=== PATIENT | female | born 1965 | race Caucasian/White ===

== ENCOUNTER → 2016-10-12 | Outpatient (CLI) | payer BC ==
[~2016-10-12] MED LIST: ADVIN50/60 INH; ALBU1AER9 PO; FERR325T PO
--- NOTE | 2016-10-12 10:32 | DIAGNOSTIC IMAGING REPORT ---
LEFT WRIST MIN 3 VIEWS ROUTINE CLINICAL HISTORY: Left wrist pain following fall. COMPARISON: Left wrist radiographs September 29, 2016. FINDINGS: Alignment of the left wrist is anatomic. There is no acute fracture. IMPRESSION: No acute fracture or dislocation of the left wrist. Electronically signed by: Adebayo Kaplan M.D. 10/12/2016 10:30 AM Dictated Date/Time: 10/12/2016 10:28 AM
== END | disposition home or self-care (01) ==
LOC: C.RDSM 12:50
PROVIDERS: ATTEND Family Medicine
DX: M25.532 Pain in left wrist (principal)

== ENCOUNTER → 2017-09-06 | Outpatient (CLI) | payer BC ==
[~2017-09-06] MED LIST changes: +FERR1TAB62 PO; -FERR325T PO
--- NOTE | 2017-09-09 07:49 | MAMMOGRAPHY REPORT ---
BILATERAL DIGITAL SCREENING MAMMOGRAM TOMOSYNTHESIS WITH CAD: 09/06/2017 CLINICAL HISTORY: Routine screening. Patient has no complaints. TECHNIQUE: Breast tomosynthesis in addition to standard 2D mammography was performed. Current study was also evaluated with a Computer Aided Detection (CAD) system. COMPARISON: Comparison is made to exams dated: 07/04/2016 mammogram, 07/01/2015 mammogram, 06/30/2014 m ammogram, 06/29/2013 mammogram, 06/03/2012 mammogram, and 04/18/2011 mammogram - [facility] nter. BREAST COMPOSITION: There are scattered areas of fibroglandular density in both breasts. FINDINGS: No suspicious masses, calcifications, or areas of architectural distortion are noted in ei ther breast. There has been no significant interval change compared to prior exams. IMPRESSION: ACR BI-RADS CATEGORY 1: NEGATIVE There is no mammographic evidence of malignancy. A 1 year screening mammogram is recommended. The pa tient will receive written notification of the results. Approximately 10% of breast cancers are not detected with mammography. A negative mammographic report should not delay biopsy if a clinically suggestive mass is present. Concepcion Duke M.D. ah/:09/06/2017 16:18:59 Fiscal Specialist: Livia BARRERA(R)(M), [facility] letter sent: Normal 1/2 BI-RADS Code: ACR BI-RADS Category 1: Negative
== END | disposition home or self-care (01) ==
LOC: C.MAMM 15:57
PROVIDERS: ATTEND Obstetrics & Gynecology
DX: Z12.31 Encounter for screening mammogram for malignant neoplasm of breast (principal)

== ENCOUNTER → 2017-10-22 | Outpatient (CLI) | payer BC | END | disposition home or self-care (01) | LOC: C.PAPS 10:09 | PROVIDERS: ATTEND Obstetrics & Gynecology | DX: Z01.419 Encounter for gynecological examination (general) (routine) without abnormal findings (principal) ==

== ENCOUNTER → 2017-11-15 | Outpatient (CLI) | payer OTHER ==
[~2017-11-15] MED LIST changes: +OPTIRAY 320 IV PRN
--- NOTE | 2017-11-15 12:13 | DIAGNOSTIC IMAGING REPORT ---
SOFT TISSUE NECK COMBO CLINICAL HISTORY: K11.20 [id number] FEMALE WITH RIGHT SUBMANDIBULAR pain. Nodule. TECHNIQUE: Pre and postcontrast transaxial acquisition of the soft tissue neck. Three-dimensional multi axial reformatted images are COMPARISON STUDY: None FINDINGS: The unenhanced component of the study shows no abnormal calcifications in the region of the salivary glands or salivary gland drainage tracts. Postcontrast images show all major salivary glands including parotid and submandibular glands to enhance uniformly. Several small nodes in the cervical tracts are identified bilaterally. These do not exceed 6 mm. Superficial to the right submandibular gland at the site of palpable nodularity is a 6 mm benign-appearing node. Similar findings are seen superficial to the left submandibular gland as well as an all levels of the cervical tracts. These potentially are reactive. There is no evidence for significant or bulky adenopathy. Thyroid is symmetric. Glottic and subglottic regions are unremarkable. IMPRESSION: 1. Normal appearance to the salivary glands. 2. Several small lymph nodes superficial to the submandibular glands measuring up to 6 mm. These most likely are reactive. 3. No evidence for abnormal mass or collection. 4. No abnormal soft tissue calcifications. 5. No significant cervical adenopathy is appreciated. The above report was generated using voice recognition software. It may contain grammatical, syntax or spelling errors. Electronically signed by: Herberth Wolff M.D. 11/15/2017 12:12 PM Dictated Date/Time: 11/15/2017 12:03 PM
== END | disposition home or self-care (01) ==
LOC: C.CTS 11:15
DX: K11.20 Sialoadenitis, unspecified (principal); R59.0 Localized enlarged lymph nodes

== ENCOUNTER → 2018-02-10 | Outpatient (CLI) | payer OTHER ==
[~2018-02-10] MED LIST changes: -OPTIRAY 320 IV PRN
[2018-02-10 10:29] LABS: ALBUMIN 3.7 gm/dl (3.4-5.0); ALT/SGPT 21 U/L (12-78); AST/SGOT 17 U/L (15-37); BLOOD UREA NITROGEN 10 mg/dl (7-18); CARBON DIOXIDE 27 mmol/L (21-32); CREATININE 0.78 mg/dl (0.60-1.20); GLUCOSE 88 mg/dl (70-99); POTASSIUM 4.1 mmol/L (3.5-5.1); SODIUM 139 mmol/L (136-145)
[2018-02-10 10:39] LABS: ALKALINE PHOSPHATASE 79 U/L (45-117); TOTAL PROTEIN 7.5 gm/dl (6.4-8.2)
[2018-02-10 10:43] LABS: MEAN CELL VOLUME 76.5 fL (80-100); MEAN PLATELET VOLUME 10.2 fL (7.4-10.4); PLATELET COUNT 296 K/uL (130-400); RED CELL DISTRIBUTION WIDTH CV 15.1 % (11.5-14.5); RED CELL DISTRIBUTION WIDTH SD 42.5 fL (36.4-46.3); WHITE BLOOD COUNT 3.89 K/uL (4.8-10.8)
[2018-02-10 10:47] LABS: BASO % 0.5 %; BASO ABS # 0.02 K/uL (0-0.2); EOS % 3.3 %; EOS ABS # 0.13 K/uL (0-0.5); LYMPH ABS # 1.09 K/uL (1.2-3.4); MONO % 6.9 %; MONO ABS # 0.27 K/uL (0.11-0.59); NEUT % 61.3 %; NEUT ABS # 2.38 K/uL (1.4-6.5)
== END | disposition home or self-care (01) ==
LOC: C.LAB1850 08:55
PROVIDERS: ATTEND Internal Medicine Pulmonary Disease
DX: J45.909 Unspecified asthma, uncomplicated (principal); J30.9 Allergic rhinitis, unspecified; K22.70 Barrett's esophagus without dysplasia

== ENCOUNTER 2018-04-23 12:40 | Inpatient (IN) | payer OTHER ==
[~2018-04-23] VITALS: Ht 154.9 cm; Wt 79.0 kg
[2018-04-23] VITALS (12 sets, daily range): BP systolic 115–139; BP diastolic 69–82; PULSE 82–88; TEMP 36.7–37; O2SAT 95–100; Ht 154.9 cm; Wt 79.0 kg
[~2018-04-23 12:40] MED LIST changes: -CYAN10005 PO; -PRAM1TAB52 PO; -PRLSR20 PO; -VNTHFA/IN INH
--- NOTE | 2018-04-23 13:25 | EMERGENCY ROOM VISIT NOTE ---
History Report prepared by Ras: Gurmeet Taylor Under the Supervision of: Dr. Eric Gutierrez M.D. First contact with patient: 13:03 Chief Complaint: ABNORMAL LABS Stated Complaint: NO OXYGEN IN BLOOD, WEAK, DIZZY History of Present Illness The patient is a 53 year old white female with a past medical history of asthma , anemia who presents to the ED with a cc of constant weakness beginning a week ago. Positive weak, fatigued, taking iron supplements regularly, questionable black stools, SOB with exertion. Negative rectal bleeding, cough, fevers, alcohol use, tobacco use, vomiting blood, prolonged vaginal bleeding, abdominal pain, recent trauma, chest pain, recent surgery, easy bruising, easy bleeding. Pt states she had blood work completed this morning. Review of EMR shows the patient's hemoglobin was 5.8 today. This is a 3 point drop since her last blood work. Source of History: patient Onset: a week ago Quality: other (weakness) Timing: constant Associated Symptoms: + SOB, + fatigue, No fevers, No cough, No chest pain, No vomiting, No abdominal pain Note: Positive: questionable black stools Negative: rectal bleeding Review of Systems See HPI for pertinent positives and negatives. A total of ten systems were reviewed and were otherwise negative. Past Medical & Surgical Medical Problems: (1) Asthma (2) Profound anemia (3) Seasonal allergies (4) Symptomatic anemia Family History Cancer Diabetes mellitus Heart disease Hypertension Kidney disease Kidney stones Social History Smoking Status: Never Smoker Housing Status: lives with family Occupation Status: employed Current/Historical Medications Scheduled Albuterol Hfa (Ventolin Hfa), 2-4 PUFFS INH Q6H Ferrous Sulfate (Ferrous Sulfate), 325 MG PO TID Fluticasone Prop/Salmeterol (Advair Diskus 500/50 60 Dose), 1 PUFF INH BID Omeprazole (Prilosec), 20 MG PO DAILY Allergies Coded Allergies: Chlorpheniramine (Verified Allergy, Severe, HIVES, 04/23/18) PT INDICATED SHE IS ALLERGIC TO ALL ALLERGY MEDICINE Phenylpropanolamine (Verified Allergy, Severe, HIVES, 04/23/18) PT INDICATED SHE IS ALLERGIC TO ALL ALLERGY MEDICINE Penicillins (Verified Allergy, Intermediate, THROAT CLOSES, 04/23/18) Dust (Verified Allergy, Unknown, ASMTHMA, 04/23/18) Latex (Verified Allergy, Unknown, FAINTING, 04/23/18) Physical Exam Vital Signs Date Time Temp Pulse Resp B/P (MAP) Pulse Ox O2 Delivery O2 Flow Rate FiO2 04/23/18 16:57 36.9 84 20 139/82 98 04/23/18 16:39 87 18 134/80 100 04/23/18 16:21 36.8 88 18 132/73 99 04/23/18 16:21 132/73 04/23/18 16:20 138/105 04/23/18 16:17 91/72 04/23/18 16:11 37.0 88 18 123/71 100 04/23/18 16:11 83 26 99 04/23/18 16:01 123/71 04/23/18 15:46 120/73 04/23/18 15:45 36.9 85 18 120/73 98 04/23/18 15:41 83 20 96 04/23/18 15:35 135/74 04/23/18 15:35 36.8 85 24 135/74 98 04/23/18 15:11 84 14 100 04/23/18 15:06 138/74 04/23/18 15:05 36.8 87 24 138/74 98 04/23/18 15:01 142/75 04/23/18 14:50 36.8 87 16 120/69 98 04/23/18 14:49 120/69 04/23/18 14:40 98 Room Air 04/23/18 14:40 99 04/23/18 14:31 128/65 04/23/18 14:17 89 16 128/66 99 Room Air 04/23/18 14:17 128/66 04/23/18 13:40 90 24 99 04/23/18 13:24 90 04/23/18 12:44 36.8 91 20 115/56 99 Room Air Physical Exam GENERAL: Awake, alert, well-appearing, NAD HENT: Normocephalic, atraumatic. EYES: Normal conjunctiva. Sclera non-icteric. PERRL. No anisocoria. NECK: Supple. No nuchal rigidity. FROM. RESPIRATORY: CTAB, no rhonchi, wheezing, crackles CARDIAC: RRR, no MRG RECTAL (performed in the presence of a female nurse): No gross blood. No melanic stool. No fissures. No hemorrhoids. Hemoccult positive. ABDOMEN: Soft, NTND, BS+ MSK: No chest wall TTP, no LE edema NEURO: GCS 15, CN 2-12 intact, moves all 4s on command SKIN: No rash or jaundice noted. Pallor. Medical Decision & Procedures ER Provider Diagnostic Interpretation: X-ray: Per my interpretation, radiologist review. CHEST ONE VIEW PORTABLE CLINICAL HISTORY: Shortness of breath. COMPARISON STUDY: Chest radiograph April 23, 2016. FINDINGS: Patient is rotated. No pneumothorax or pleural effusion is noted. A large hiatal hernia is suspected. Borderline cardiomegaly is noted. There is no evidence for pulmonary edema. Bibasal or prominent markings are unchanged IMPRESSION: 1. No definite acute cardiopulmonary findings. Prominent bibasilar increased markings are similar to previous exam and favor normal vessels or atelectasis. 2. Large hiatal hernia. Electronically signed by: Adebayo Kaplan M.D. 04/23/2018 1:27 PM Dictated Date/Time: 04/23/2018 1:26 PM Laboratory Results Test 04/23/18 13:10 04/23/18 16:12 Prothrombin Time 10.2 SECONDS (9.0-12.0) Prothromb Time International Ratio 1.0 (0.9-1.1) Activated Partial Thromboplast Time 21.5 SECONDS (21.0-31.0) Partial Thromboplastin Ratio 0.8 Laboratory results reviewed by me Medications Administered Medications (Trade) Dose Ordered Sig/Lexus Route Start Time Stop Time Status Last Admin Dose Admin Pantoprazole Sodium 80 mg/ Dextrose 120 ml @ 480 mls/hr NOW STAT IV 04/23/18 14:42 04/23/18 14:56 DC 04/23/18 16:15 480 MLS/HR Pantoprazole Sodium 40 mg/ Dextrose 100 ml @ 20 mls/hr Q5H IV 04/23/18 15:00 04/23/18 19:59 04/23/18 16:35 20 MLS/HR ECG Per My Interpretation Indication: other (Low hemoglobin) Rate (beats per minute): 89 Rhythm: normal sinus Findings: T-wave inversion (Lead III.), other (Normal axis. Normal intervals. No other STS changes or TWI.) ED Course 1320: The patient was evaluated in room A12B. A complete history and physical exam was performed. 1410: Upon reexamination, the patient was resting. I performed a rectal examination. I discussed the test results and treatment plan with her. The patient will be evaluated for further management. 1424: I discussed the patient's case with Dr. Beckwith [facility] Hospitalist. The patient will be evaluated for further management. Medical Decision The patient is a 53 year old white female with a past medical history of asthma , anemia who presents to the ED with a cc of constant weakness beginning a week ago. Nursing notes reviewed. Ancillary studies and prior records reviewed. Differential diagnosis: Etiologies such as diverticulosis, AVM, coagulopathy, colitis, inflammatory bowel disease, malignancy, Jennifer-Curran tear, esophagitis, peptic ulcer disease , variceal bleed, gastritis, epistaxis, fissure, hemorrhoids, as well as others were entertained. Patient was seen and evaluated the bedside. Patient is noted some increasing exertional dyspnea and general fatigue. The patient states that she did have a colonoscopy and endoscopy 2 years ago. The patient did require transfusion at that time. Patient denies any bright red blood or dark tarry stools. The patient has been taking iron supplements. Patient denies any chest pains. Patient does not feel parallel on exam. The patient did have blood work completed as an outpatient was told to present here. The patient does have a noted hemoglobin of 5.8. Patient is menopausal and states that she has not had any recent bowel patient denies any recent trauma. Patient has stable vital signs. Patient did have additional coagulation studies and blood bank along with 2 units of PRBCs ordered. Rectal exam was performed and the patient was Hemoccult positive without any gross blood or tarry dark or tarry stools. PPI bolus and drip were initiated. I did speak with the on-call hospitalist who agreed to further evaluate and treat the patient. Medication Reconcilliation Current Medication List: was personally reviewed by me Blood Pressure Screening Patient's blood pressure: Normal blood pressure Blood pressure disposition: Did not require urgent referral Consults Time Called: 1410 Consulting Physician: Dr. Beckwith [facility] Hospitalist Returned Call: 1424 I discussed the patient's case with Dr. Beckwith [facility] Hospitalist. The patient will be evaluated for further management. Impression Primary Impression: GI bleed Critical Care I have personally spent greater than 45 minutes of critical care time in the direct management of this patient. This includes bedside care, interpretation of diagnostic studies, and testing, discussion with consultants, patient, and family members, and other required patient management activities. This 45 minutes is in excess of all separately billable procedures. Scribe Attestation The scribe's documentation has been prepared under my direction and personally reviewed by me in its entirety. I confirm that the note above accurately reflects all work, treatment, procedures, and medical decision making performed by me. Departure Information Dispostion Being Evaluated By Hospitalist Referrals Paolo Upton M.D. (PCP) Patient Instructions My [facility] Problem Qualifiers Primary Impression: GI bleed GI bleed type/associated pathology: unspecified gastrointestinal hemorrhage type Qualified Codes: K92.2 - Gastrointestinal hemorrhage, unspecified
--- NOTE | 2018-04-23 13:29 | DIAGNOSTIC IMAGING REPORT ---
CHEST ONE VIEW PORTABLE CLINICAL HISTORY: Shortness of breath. COMPARISON STUDY: Chest radiograph April 23, 2016. FINDINGS: Patient is rotated. No pneumothorax or pleural effusion is noted. A large hiatal hernia is suspected. Borderline cardiomegaly is noted. There is no evidence for pulmonary edema. Bibasal or prominent markings are unchanged IMPRESSION: 1. No definite acute cardiopulmonary findings. Prominent bibasilar increased markings are similar to previous exam and favor normal vessels or atelectasis. 2. Large hiatal hernia. Electronically signed by: Adebayo Kaplan M.D. 04/23/2018 1:27 PM Dictated Date/Time: 04/23/2018 1:26 PM
[2018-04-23] MEDS ORDERED: PRLSR20 PO (13:38)
[2018-04-23] MEDS ORDERED: VNTHFA/IN INH (13:38)
[2018-04-23 13:39] LABS: PTT PATIENT 21.5 SECONDS (21.0-31.0)
[2018-04-23] MEDS ORDERED: PANTOprazole INJ 80 MG in DEXTROSE 5% 100ML IV STA (14:42)
[2018-04-23] MEDS ORDERED: ICU PROTOCOL FOR HYPERGLYCEMIA PRN (15:30)
--- NOTE | 2018-04-23 15:35 | History and Physical ---
History & Physical Date & Time of Service: Apr 23, 2018 at 15:30 Chief Complaint: No Oxygen In Blood, Weak, Dizzy Primary Care Physician: Paolo Upton M.D. History of Present Illness Source: patient Paula Arroyo is a 53 yo female who presents with a 1 month history of generalized fatigue. Patient believed this was due to the weather. This past week, this has worsened to the point where patient reports SOB upon exertion, fatigue, and dizziness when changing position. Patient also states having a metallic taste in her mouth for past 2 days. Patient however, denies other symptoms of acid reflux such as burning or chest pain. Patient reports that she is compliant with her medicine, she takes iron supplement and PPI. She reports that she had a similar episode in the past 2 years when she was hospitalized for anemia. It was determined to be iron deficiency but a source was not found. During that time, it was blamed on possible NSAID use. Patient was followed with Dr. Jaffe from [facility] and has had upper and lower Gi endoscopies without showing any signs of bleeding. Patient has not had an repeat episode since and was tolerating her PPI and iron tabs utnil this episode. Patient denies any change in her stool color as she always has dark stools and attributes this to her iron supplement. Past Medical/Surgical History Medical Problems: (1) Anemia (2) Asthma (3) Fall (4) GI bleed (5) Left wrist sprain (6) Profound anemia (7) Seasonal allergies Past Medical History: Includes asthma and allergies. Patient also was hospitalized in 2016 for profound anemia. Has been on iron supplements since. Patient has been monitored by Dr. Jaffe and has had surveillance through upper and lower endoscopies. However the scopes have been negative for bleeding. They have shown a hiatal hernia, and Sandrita'S ESOPHAGUS however. PAST SURGICAL HISTORY: She has never had a colonoscopy. She is actually due for one in June. Family History Cancer Diabetes mellitus Heart disease Hypertension Kidney disease Kidney stones FAMILY HISTORY: No notable colon cancer. Grandparents apparently had diabetes and strokes. Social History Smoking Status: Never Smoker Smokeless Tobacco Use: No Alcohol Use: none Occupational Status: employed Immunizations History of Influenza Vaccine: Yes History of Tetanus Vaccine?: Yes History of Pneumococcal: No History of Hepatitis B Vaccine: Yes Allergies Coded Allergies: Chlorpheniramine (Verified Allergy, Intermediate, HIVES, 04/24/18) PT INDICATED SHE IS ALLERGIC TO ALL ALLERGY MEDICINE Penicillins (Verified Allergy, Intermediate, THROAT CLOSES, 04/23/18) Phenylpropanolamine (Verified Allergy, Intermediate, HIVES, 04/24/18) PT INDICATED SHE IS ALLERGIC TO ALL ALLERGY MEDICINE Dust (Verified Allergy, Mild, ASTHMA, 04/24/18) Latex (Verified Allergy, Unknown, FAINTING, 04/23/18) Home Medications Scheduled Albuterol Hfa (Ventolin Hfa), 2-4 PUFFS INH Q6H Cyanocobalamin (Vitamin B-12), 1,000 MCG PO DAILY Ferrous Sulfate (Ferrous Sulfate), 325 MG PO TID Fluticasone Prop/Salmeterol (Advair Diskus 500/50 60 Dose), 1 PUFF INH BID Omeprazole (Prilosec), 20 MG PO DAILY Pramipexole Dihydrochloride (Mirapex), 1 TAB PO HS Review of Systems Constitutional: No fever, No chills Eyes: No worsening of vision ENT: No hearing loss Respiratory: No cough Cardiovascular: No chest pain Abdomen: + pain Neurologic: No memory loss Psychiatric: No depression symptoms Endocrine: + fatigue, No excessive thirst Hematologic / Lymphatic: No abnormal bleeding/bruising Integumentary: No rash Allergic / Immunologic: No environmental allergies Physical Exam Vital Signs Date Time Temp Pulse Resp B/P (MAP) Pulse Ox O2 Delivery O2 Flow Rate FiO2 04/23/18 14:17 89 16 128/66 99 Room Air 04/23/18 13:24 90 04/23/18 12:44 36.8 91 20 115/56 99 Room Air General Appearance: WD/WN, no apparent distress Head: normocephalic Eyes: normal inspection ENT: normal ENT inspection, hearing grossly normal Neck: supple, no adenopathy Respiratory/Chest: chest non-tender, lungs clear, normal breath sounds Cardiovascular: regular rate, rhythm, no edema Abdomen/GI: normal bowel sounds, non tender, soft Back: normal inspection Extremities/Musculoskelatal: normal inspection Neurologic/Psych: alert, oriented x 3 Skin: normal color Lymphatic: no adenopathy Diagnostics Laboratory Results Results Past 24 Hours Test 04/23/18 13:10 Range/Units Prothrombin Time 10.2 9.0-12.0 SECONDS Prothromb Time International Ratio 1.0 0.9-1.1 Activated Partial Thromboplast Time 21.5 21.0-31.0 SECONDS Partial Thromboplastin Ratio 0.8 Diagnostic Radiology CHEST ONE VIEW PORTABLE CLINICAL HISTORY: Shortness of breath. COMPARISON STUDY: Chest radiograph April 23, 2016. FINDINGS: Patient is rotated. No pneumothorax or pleural effusion is noted. A large hiatal hernia is suspected. Borderline cardiomegaly is noted. There is no evidence for pulmonary edema. Bibasal or prominent markings are unchanged IMPRESSION: 1. No definite acute cardiopulmonary findings. Prominent bibasilar increased markings are similar to previous exam and favor normal vessels or atelectasis. 2. Large hiatal hernia. EKG Normal sinus rhythm Normal ECG When compared with ECG of 23-APR-2016 18:01, No significant change was found Impression Assessment and Plan Symptomatic Anemia in a 53 yo female with h/o remote hospitalization 2 years ago for same reason. Patient has had multiple upper and lower Gi scopes which have been negative. Patient has not had a capsule endoscopy. For past 1 week, patient has been more symptomatic. 1. symptomatic anemia highly suggestive of GI bleed given the presentation of her symptoms. Will admit to Tele Iron studies were done prior to arrival: total iron was low as well as transferrin % saturation was low. Patient is getting transfusion of PRBC. 2 ordered. Hemoglobin is 5.8 from outpatient setting. will order trop x 3. will consult GI likely will need repeat Upper endoscopy in AM Patient will be NPO. will place on IVF LR 150ml/hr Protonix drip started H/O Grant's esophagus will contnue PPI as noted above. H/O Asthma will continue Advair. H/O hiatal hernia will likely require upper endoscopy as noted above. DVT: SCD Resuscitation Status VTE Prophylaxis Will order VTE Prophylaxis: Yes Reason for no VTE drug order: Contraindicated
[2018-04-23] MEDS ORDERED: ALBUTEROL 0.5% NEB SOLN 2.5 MG/0.5 ML VIAL INH PRN (16:30)
[2018-04-23] MEDS: PANTOprazole INJ 40 MG in DEXTROSE 5% 100ML IV SCH ×2 (16:35→21:46)
[2018-04-23 18:26] LABS: ALBUMIN 3.7 gm/dl (3.4-5.0); ALKALINE PHOSPHATASE 76 U/L (45-117); ALT/SGPT 23 U/L (12-78); AST/SGOT 16 U/L (15-37); BLOOD UREA NITROGEN 12 mg/dl (7-18); CALCIUM 8.9 mg/dl (8.5-10.1); CARBON DIOXIDE 25 mmol/L (21-32); CREATININE 0.85 mg/dl (0.60-1.20); GLUCOSE 97 mg/dl (70-99); POTASSIUM 4.1 mmol/L (3.5-5.1); SODIUM 138 mmol/L (136-145); TOTAL PROTEIN 7.2 gm/dl (6.4-8.2)
--- NOTE | 2018-04-23 19:03 | GASTROINTESTINAL CONSULTATION ---
DATE OF CONSULTATION: 04/23/2018 REASON FOR EVALUATION: Anemia. HISTORY OF PRESENT ILLNESS: The patient is a 53-year-old who has had recurrent anemia in the past and undergone upper and lower endoscopies without a specific bleeding site found. For the last month, the patient has been feeling weak and fatigued and for the last week, she has been feeling her heart pounding quite vigorously even at rest. She was found to have a hemoglobin of 5.8 and was referred for admission. She is currently being seen in the Emergency Room where she is receiving her first unit of red blood cells. She denies abdominal pain, nausea, vomiting, change in bowels or visible blood in her stool. She does take iron orally and does make her stools dark. PAST MEDICAL HISTORY: Remarkable for asthma, recurrent anemia. MEDICATIONS: Albuterol, iron, Advair Diskus, and Prilosec. ALLERGIES: CHLORPHENIRAMINE, PENICILLIN, DUST, LATEX. FAMILY HISTORY: Positive for cancer, diabetes, heart disease, hypertension, kidney disease, kidney stones. SOCIAL HISTORY: The patient works outside the home. Does not smoke. REVIEW OF SYSTEMS: Positive for pounding heart and weakness. Remainder is negative. PHYSICAL EXAMINATION: GENERAL: The patient appears somewhat pale, but in no acute distress. VITAL SIGNS: Blood pressure is 128/66, pulse 89, respirations 16, room air saturation is 99%. ABDOMEN: Soft. There are no scars, no masses, tenderness, or hepatosplenomegaly. LUNGS: Clear. HEART: Shows normal S1 and S2. Regular rate and rhythm. NEUROLOGIC: Nonfocal. IMPRESSION: The patient presents with recurrent anemia without any obvious source of blood loss. Her INR is normal at 1. She is not taking any aspirin or nonsteroidals. PLAN: The plan is to transfuse her to hemoglobin of about 8. Start her on Protonix drip. We will schedule her for an EGD tomorrow to rule out an upper source of blood loss. She did have a colonoscopy a couple of years ago, which did not show anything. We probably will proceed with an outpatient video capsule of her small intestine if no other source is found.
[2018-04-23] MEDS: LACTATED RINGER'S 1000ML 1,000 ML IV SCH (19:21)
[2018-04-23 20:13] LABS: HEMATOCRIT 27.2 % (37-47); HEMOGLOBIN 8.2 g/dL (12.0-16.0)
[2018-04-23] MEDS: FLUTICASONE/SALMETEROL (ADVAIR) 500/50 INH 14 PUFF INH SCH (21:04)
[2018-04-24 00:23] LABS: HEMATOCRIT 26.4 % (37-47); HEMOGLOBIN 8.1 g/dL (12.0-16.0)
[2018-04-24] MEDS: LACTATED RINGER'S 1000ML 1,000 ML IV SCH ×3 (01:52→13:54)
[2018-04-24] MEDS: PANTOprazole INJ 40 MG in DEXTROSE 5% 100ML IV SCH ×4 (01:52→16:48)
[2018-04-24 03:56] VITALS: BP 107/60; PULSE 77; TEMP 36.8; O2SAT 94
[2018-04-24 04:10] LABS: BASO % 0.3 %; BASO ABS # 0.01 K/uL (0-0.2); EOS % 1.7 %; EOS ABS # 0.06 K/uL (0-0.5); HEMATOCRIT 25.6 % (37-47); HEMOGLOBIN 7.7 g/dL (12.0-16.0); LYMPH ABS # 0.91 K/uL (1.2-3.4); MEAN CELL VOLUME 75.5 fL (80-100); MEAN CORPUSCULAR HEMOGLOBIN 22.7 pg (25-34); MEAN CORPUSCULAR HGB CONC 30.1 g/dl (32-36); MEAN PLATELET VOLUME 9.9 fL (7.4-10.4); MONO % 9.4 %; MONO ABS # 0.33 K/uL (0.11-0.59); NEUT % 62.6 %; NEUT ABS # 2.19 K/uL (1.4-6.5); PLATELET COUNT 259 K/uL (130-400); RED CELL DISTRIBUTION WIDTH CV 17.3 % (11.5-14.5); RED CELL DISTRIBUTION WIDTH SD 47.9 fL (36.4-46.3)
[2018-04-24 04:32] LABS: ALBUMIN 3.1 gm/dl (3.4-5.0); CREATININE 0.75 mg/dl (0.60-1.20); PHOSPHORUS 3.9 mg/dl (2.5-4.9); TOTAL PROTEIN 6.2 gm/dl (6.4-8.2)
[2018-04-24] MEDS: FLUTICASONE/SALMETEROL (ADVAIR) 500/50 INH 14 PUFF INH SCH ×2 (07:51→20:56)
[2018-04-24 08:05] VITALS: BP 114/73; PULSE 81; TEMP 37.1; O2SAT 94
[2018-04-24 12:05] VITALS: BP 117/71; PULSE 80; TEMP 37; O2SAT 94
[2018-04-24] MEDS ORDERED: COUGH DROP (SUGAR FREE) LOZ 24 LOZ/1 BOX LOZ ONE (13:51)
[2018-04-24 13:55] LABS: HEMATOCRIT 27.9 % (37-47); HEMOGLOBIN 8.5 g/dL (12.0-16.0)
[2018-04-24] MEDS ORDERED: CYANOCOBALAMIN 1000 MCG/ML VIAL IM ONE (15:21)
[2018-04-24] MEDS ORDERED: PROPOFOL IV EMULSION 10 MG/ML 20 ML VIAL ONE (15:24)
[2018-04-24] MEDS ORDERED: LIDOCAINE HCL 2% 2 ML VIAL (20MG/ML) ONE (15:24)
--- NOTE | 2018-04-24 15:36 | Endo History and Physical ---
History & Physical Date of Service: Apr 24, 2018. Chief Complaint: anemia Referring Physician: Dr Upton History of Present Illness For EGD Past Surgical History Hx Cardiac Surgery: No Hx Abdominal Surgery: No Hx Post-Op Nausea and Vomiting: No Hx Cancer Surgery: No Hx Thoracic Surgery: No Hx Orthopedic: No Hx Urinary Tract Surgery: No Social History Smoking Status: Never Smoker Hx Substance Use: No Hx Alcohol Use: No Allergies Coded Allergies: Chlorpheniramine (Verified Allergy, Severe, HIVES, 04/23/18) PT INDICATED SHE IS ALLERGIC TO ALL ALLERGY MEDICINE Phenylpropanolamine (Verified Allergy, Severe, HIVES, 04/23/18) PT INDICATED SHE IS ALLERGIC TO ALL ALLERGY MEDICINE Penicillins (Verified Allergy, Intermediate, THROAT CLOSES, 04/23/18) Dust (Verified Allergy, Unknown, ASMTHMA, 04/23/18) Latex (Verified Allergy, Unknown, FAINTING, 04/23/18) Current Medications Reported Home Medications Medications Dose Route/Sig Max Daily Dose Days Date Category Prilosec (Omeprazole) 20 Mg Capcr 20 Mg PO DAILY 04/23/18 Reported Ventolin Hfa (Albuterol) 200 Puffs/98153 Mcg Aers 2-4 Puffs INH Q6H 04/23/18 Reported Ferrous Sulfate 325 Mg Tab 325 Mg PO TID 04/25/16 Rx Advair Diskus 500/50 60 Dose (Fluticasone Prop/Salmeterol) 1 Ea Aerp 1 Puff INH BID 04/23/16 Reported Vital Signs Weight (Kilograms): 80.700 Height (Feet): 5 Height (Inches): 1 Date Time Temp Pulse Resp B/P (MAP) Pulse Ox O2 Delivery O2 Flow Rate FiO2 04/24/18 12:05 37.0 80 16 117/71 (86) 94 Room Air 04/24/18 08:05 37.1 81 16 114/73 (87) 94 Room Air 04/24/18 08:00 Room Air 04/24/18 03:56 36.8 77 24 107/60 (76) 94 Room Air 04/23/18 23:38 36.7 82 24 115/73 (87) 95 Room Air 04/23/18 20:00 Room Air 04/23/18 18:00 Room Air 04/23/18 18:00 36.8 84 18 136/72 96 04/23/18 17:37 36.9 86 20 151/87 96 04/23/18 17:32 151/87 04/23/18 17:26 86 20 96 04/23/18 16:57 36.9 84 20 139/82 98 04/23/18 16:57 139/82 04/23/18 16:56 84 26 98 04/23/18 16:46 141/88 04/23/18 16:39 87 18 134/80 100 04/23/18 16:31 134/80 04/23/18 16:26 89 20 100 04/23/18 16:21 36.8 88 18 132/73 99 04/23/18 16:21 132/73 04/23/18 16:20 138/105 04/23/18 16:17 91/72 04/23/18 16:11 37.0 88 18 123/71 100 04/23/18 16:11 83 26 99 04/23/18 16:01 123/71 04/23/18 15:46 120/73 04/23/18 15:45 36.9 85 18 120/73 98 04/23/18 15:41 83 20 96 04/23/18 15:35 135/74 04/23/18 15:35 36.8 85 24 135/74 98 Physical Exam General Appearance: WD/WN Respiratory/Chest: Respiratory effort: no dyspnea Cardiovascular: Heart Auscultation: RRR Abdomen: Inspection & Palpation: soft Assessment and Plan anemia for EGD
--- NOTE | 2018-04-24 15:55 | Discharge Instructions ---
Endoscopy Patient Instructions Date / Procedure(s) Performed Apr 24, 2018. EGD Allergy Information Coded Allergies: Chlorpheniramine (Verified Allergy, Severe, HIVES, 04/23/18) PT INDICATED SHE IS ALLERGIC TO ALL ALLERGY MEDICINE Phenylpropanolamine (Verified Allergy, Severe, HIVES, 04/23/18) PT INDICATED SHE IS ALLERGIC TO ALL ALLERGY MEDICINE Penicillins (Verified Allergy, Intermediate, THROAT CLOSES, 04/23/18) Dust (Verified Allergy, Unknown, ASMTHMA, 04/23/18) Latex (Verified Allergy, Unknown, FAINTING, 04/23/18) Discharge Date / Findings Apr 24, 2018. Grant's, inlet patch Medication Instructions Restart Stopped Medication(s): resume meds Current Inpatient Medications Medications (Trade) Dose Ordered Sig/Lexus Route Start Time Stop Time Status Last Admin Dose Admin Pantoprazole Sodium 40 mg/ Dextrose 100 ml @ 20 mls/hr Q5H IV 04/23/18 15:00 05/23/18 14:59 04/24/18 11:30 20 MLS/HR Miscellaneous Information ([facility] Protocol For Hyperglycemia) 1 ea PRN PRN N/A 04/23/18 15:30 04/25/18 15:29 Salmeterol Xinafoate/ Fluticasone (Advair Diskus 500/50 Inh) 1 puff BID INH 04/23/18 21:00 05/23/18 20:59 04/24/18 07:51 1 PUFF Albuterol Sulfate (Ventolin 0.5% 2.5MG/0.5ML Neb) 2.5 mg Q6R PRN INH 04/23/18 16:30 05/23/18 16:29 Lactated Ringer's 1,000 ml @ 150 mls/hr Q6H40M IV 04/23/18 18:45 05/23/18 18:44 04/24/18 13:54 150 MLS/HR Provider Instructions Activity Restrictions - No exercising or heavy lifting for 24 hours. - Do not drink alcohol the day of the procedure. - Do not drive a car or operate machinery until the day after the procedure. - Do not make any important decisions or sign important papers in 24 hours after the procedure. Following Day: - Return to full activity which may include returning to work/school. Diet Start your diet with liquids and light foods (jello, soup, juice, toast). Then eat your usual diet if not nauseated. Treatment For Common After Affects For mild abdominal pain, bloating, or excessive gas: - Rest - Eat lightly - Lie on right side Follow-Up Information Follow-up with as scheduled Anesthesia Information What You Should Know You have had a procedure that required some medicine to reduce anxiety and discomfort. This treatment is called moderate sedation. After receiving the treatment, you may be sleepy, but you will be able to breathe on your own. The effects of the treatment may last for several hours. Follow these instructions along with Activity/Diet recommendations noted above: * Do NOT do anything where dizziness or clumsiness would be dangerous. * Rest quietly at home today, then you can be up and about tomorrow. * Have a responsible person stay with you the rest of today. * You may have had an I.V. today. If so, you may take the dressing off later today. Recommendations Call your doctor if: * Trouble breathing * Continuous vomiting for more than 24 hours * Temperature above 101 degrees * Severe abdominal pain or bloating * Pain not relieved by pain medicine ordered * There is increased drainage or redness from any incision * A large amount of rectal bleeding greater than 2-3 tablespoons. (If you had a polyp/s removed or have hemorrhoids, a small amount of blood - from the rectum is to be expected.) * You have any unanswered questions or concerns. IN THE EVENT OF A SERIOUS EMERGENCY, GO TO THE NEAREST EMERGENCY ROOM Your discharge instructions were prepared by provider Jonathan Jaffe. Patient Instructions Signature Page Paula Arroyo Patient (or Guardian) Signature/Date: I have read and understand the instructions given to me by my caregivers. Caregiver/RN/Doctor Signature/Date: The above-named patient and/or guardian has received patient instructions on this date. + Original Patient Signature Page (only) stays with chart. Please make copy for patient.
--- NOTE | 2018-04-24 16:14 | GI REPORT ---
Patient Name: Paula Arroyo Procedure Date: 04/24/2018 3:38 PM Date of : 1965 Admit Type: Inpatient Age: 53 Gender: Female Attending MD: Jonathan Jaffe MD Procedure: Upper GI endoscopy Providers: Jonathan Jaffe MD Referring MD: John Guerrero Indications: Iron deficiency anemia Medicines: Propofol total dose 200 mg IV, Lidocaine 40 mg IV Complications: No immediate complications. Estimated Blood Loss: Estimated blood loss: none. Procedure: Pre-Anesthesia Assessment: - Prior to the procedure, a History and Physical was performed, and patient medications, allergies and sensitivities were reviewed. The patient's tolerance of previous anesthesia was reviewed. - The risks and benefits of the procedure and the sedation options and risks were discussed with the patient. All questions were answered and informed consent was obtained. After obtaining informed consent, the endoscope was passed under direct vision. Throughout the procedure, the patient's blood pressure, pulse, and oxygen saturations were monitored continuously. The Scope was introduced through the mouth, and advanced to the third part of duodenum. The upper GI endoscopy was accomplished without difficulty. The patient tolerated the procedure well. Findings: The Z-line was regular and was found 21 cm from the incisors. 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 Esophagus ends at 31 cm. The entire examined stomach was normal. The third portion of the duodenum and examined duodenum were normal. A medium-sized hiatal hernia was present. Impression: - Z-line regular, 21 cm from the incisors. 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 - Normal stomach. - Normal third portion of the duodenum and examined duodenum. - No specimens collected. Recommendation: - Return patient to hospital [facility] for ongoing care. - Perform a colonoscopy tomorrow. Jonathan Jaffe M.D. Jonathan Jaffe MD 04/24/2018 4:14:13 PM This report has been signed electronically. Note Initiated On: 04/24/2018 3:38 PM Number of Addenda: 0 I attest to the content of the Intraoperative Record and orders documented therein, exceptions below {[id number]}
--- NOTE | 2018-04-24 16:26 | PROGRESS NOTE ---
DATE: 04/24/2018 SUBJECTIVE: The patient feels better today after receiving 2 units of red cells. Her hemoglobin today is 8.5. She underwent an EGD today which showed a gastric inlet patch and a 10 cm Grant's segment with no evidence of abnormalities. The stomach and duodenum up until the third portion were all normal with no source of blood loss identified. IMPRESSION: The patient has severe iron deficiency anemia with no upper gastrointestinal source for bleeding. She has been postmenopausal for a year. She has seen no hematuria and no visible blood in her stool, although she is on iron orally. PLAN: Plan is to proceed with a colonoscopy tomorrow and if that does not show any bleeding site then will need to schedule an outpatient video capsule procedure. Colonoscopy will be performed tomorrow by Dr. Stokes.
[2018-04-24 16:46] VITALS: BP 136/84; PULSE 84; O2SAT 100
[2018-04-24] MEDS: LAVAGE SOLUTION 4000ML PO SCH (16:48)
--- NOTE | 2018-04-24 17:03 | Anesthesiology Progress Note ---
Anesthesia Post Op Note Date & Time Apr 24, 2018 at 17:02 Vital Signs Pain Intensity: 0.0 Vital Signs Past 12 Hours Date Time Temp Pulse Resp B/P (MAP) Pulse Ox O2 Delivery O2 Flow Rate FiO2 04/24/18 16:46 84 20 136/84 (101) 100 Room Air 04/24/18 16:28 79 18 128/73 (91) 100 Room Air 04/24/18 16:13 83 18 114/70 (85) 96 Room Air 04/24/18 15:58 80 16 98/52 (67) 95 Room Air 04/24/18 15:26 37.4 78 20 107/66 (80) 94 Room Air 04/24/18 12:05 37.0 80 16 117/71 (86) 94 Room Air 04/24/18 08:05 37.1 81 16 114/73 (87) 94 Room Air 04/24/18 08:00 Room Air Notes Mental Status: alert / awake / arousable, participated in evaluation Nausea / Vomiting: adequately controlled Pain: adequately controlled Airway Patency, RR, SpO2: stable & adequate BP & HR: stable & adequate Hydration State: stable & adequate Anesthetic Complications: no major complications apparent
--- NOTE | 2018-04-24 19:06 | Progress Note ---
Subjective Date of Service: Apr 24, 2018. Subjective Pt evaluation today including: conversation w/ patient, physical exam, chart review, lab review, review of studies (EGD), review of inpatient medication list Pain: none - no abdominal pain PO Intake: npo for EGD Voiding: no voiding problems tele stable overnight patient denies overt GI bleeding, melena, etc no family h/o celiac disease no intolerance to any foods no chronic digestive symptoms underwent menopause 1-2 years ago Problem List Medical Problems: (1) Fall Status: Acute (2) GI bleed Status: Acute (3) GI bleed Status: Acute (4) Left wrist sprain Status: Acute Review of Systems Respiratory: + cough, No shortness of breath, No dyspnea on exertion Cardiac: No chest pain Abdomen: No pain, No nausea, No vomiting Female : No abnormal vaginal bleeding Objective Vital Signs Date Time Temp Pulse Resp B/P (MAP) Pulse Ox O2 Delivery O2 Flow Rate FiO2 04/24/18 16:46 84 20 136/84 (101) 100 Room Air 04/24/18 16:28 79 18 128/73 (91) 100 Room Air 04/24/18 16:13 83 18 114/70 (85) 96 Room Air 04/24/18 15:58 80 16 98/52 (67) 95 Room Air 04/24/18 15:26 37.4 78 20 107/66 (80) 94 Room Air 04/24/18 12:05 37.0 80 16 117/71 (86) 94 Room Air 04/24/18 08:05 37.1 81 16 114/73 (87) 94 Room Air 04/24/18 08:00 Room Air 04/24/18 03:56 36.8 77 24 107/60 (76) 94 Room Air 04/23/18 23:38 36.7 82 24 115/73 (87) 95 Room Air 04/23/18 20:00 Room Air Physical Exam General Appearance: no apparent distress, + obese ENT: pharynx normal Neck: no JVD Respiratory/Chest: lungs clear, no respiratory distress, no accessory muscle use Cardiovascular: regular rate, rhythm, no gallop, no murmur Abdomen: normal bowel sounds, non tender, soft, no organomegaly Extremities: no pedal edema Neurologic/Psychiatric: alert, oriented x 3 Skin: + pallor Laboratory Results Last 24 Hours Test 04/23/18 19:58 7/26/18 00:06 04/24/18 03:59 04/24/18 07:53 Hemoglobin 8.2 g/dL 8.1 g/dL 7.7 g/dL Hematocrit 27.2 % 26.4 % 25.6 % Troponin I < 0.015 ng/ml < 0.015 ng/ml White Blood Count 3.50 K/uL Red Blood Count 3.39 M/uL Mean Corpuscular Volume 75.5 fL Mean Corpuscular Hemoglobin 22.7 pg Mean Corpuscular Hemoglobin Concent 30.1 g/dl Platelet Count 259 K/uL Mean Platelet Volume 9.9 fL Neutrophils (%) (Auto) 62.6 % Lymphocytes (%) (Auto) 26.0 % Monocytes (%) (Auto) 9.4 % Eosinophils (%) (Auto) 1.7 % Basophils (%) (Auto) 0.3 % Neutrophils # (Auto) 2.19 K/uL Lymphocytes # (Auto) 0.91 K/uL Monocytes # (Auto) 0.33 K/uL Eosinophils # (Auto) 0.06 K/uL Basophils # (Auto) 0.01 K/uL RDW Standard Deviation 47.9 fL RDW Coefficient of Variation 17.3 % Immature Granulocyte % (Auto) 0.0 % Immature Granulocyte # (Auto) 0.00 K/uL Polychromasia 1+ Hypochromasia PRESENT Ovalocytes 1+ Sodium Level 141 mmol/L Potassium Level 4.0 mmol/L Chloride Level 110 mmol/L Carbon Dioxide Level 23 mmol/L Anion Gap 8.0 mmol/L Blood Urea Nitrogen 10 mg/dl Creatinine 0.75 mg/dl Est Creatinine Clear Calc Drug Dose 82.9 ml/min Estimated GFR () 104.7 Estimated GFR (Non- 90.4 BUN/Creatinine Ratio 13.5 Random Glucose 106 mg/dl Calcium Level 8.0 mg/dl Phosphorus Level 3.9 mg/dl Magnesium Level 2.4 mg/dl Total Bilirubin 0.9 mg/dl Direct Bilirubin 0.2 mg/dl Aspartate Amino Transf (AST/SGOT) 14 U/L Alanine Aminotransferase (ALT/SGPT) 21 U/L Alkaline Phosphatase 71 U/L Total Protein 6.2 gm/dl Albumin 3.1 gm/dl Test 04/24/18 13:46 Hemoglobin 8.5 g/dL Hematocrit 27.9 % Ferritin 1.5 ng/ml Vitamin B12 Level 236 pg/mL Folate 21.26 ng/mL Assessment and Plan 53yo female with: 1. acute/chronic microcytic anemia - EGD today w/o source of bleeding. [facility] to proceed with colonoscopy tomorrow. If negative then outpatient capsule endoscopy. Microcytic anemia is secondary to severe iron deficiency anemia. Ferritin level was 1.5 today! She also has concomitant B12 deficiency. d/c PPI drip. can change to once daily PO protonix. If colonoscopy and capsule endoscopy are negative consider celiac testing. s/p 2 units PRBCs with stable H/H today. Repeat CBC am. 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 3. b12 deficiency - given the severity of her anemia I cannot exclude that the b12 deficiency is playing some role. thus, will order b12 and give parenterally while hospitalized. convert to PO at discharge. 4. asthma - continue outpatient inhalers. 5. hiatal hernia - moderate - PPI. 6. FEN - lower fluid rate to 75cc/hr. BMP in am. 7. DVT proph - SCDs; chemical means contraindicated. 8. fatigue, dyspnea, etc - 2nd to severe anemia. Improved. Continued [facility] stay due to: inadequate po fluid intake, multiple IV medications needed, other (colonoscopy ) Discharge planning: home
[2018-04-24 19:26] VITALS: BP 136/83; PULSE 78; TEMP 36.5; O2SAT 98
[2018-04-24 23:35] VITALS: BP 113/66; PULSE 76; TEMP 36.9; O2SAT 93
[2018-04-25] VITALS (8 sets, daily range): BP systolic 114–149; BP diastolic 53–81; PULSE 76–114; TEMP 36.5–36.8; O2SAT 89–100
[2018-04-25] MEDS: LAVAGE SOLUTION 4000ML PO SCH (05:30)
[2018-04-25 07:31] LABS: BASO % 0.3 %; BASO ABS # 0.01 K/uL (0-0.2); EOS % 2.5 %; EOS ABS # 0.09 K/uL (0-0.5); HEMATOCRIT 26.4 % (37-47); LYMPH % 28.8 %; LYMPH ABS # 1.05 K/uL (1.2-3.4); MEAN CELL VOLUME 76.5 fL (80-100); MEAN CORPUSCULAR HEMOGLOBIN 23.2 pg (25-34); MEAN CORPUSCULAR HGB CONC 30.3 g/dl (32-36); MONO % 7.4 %; MONO ABS # 0.27 K/uL (0.11-0.59); NEUT ABS # 2.23 K/uL (1.4-6.5); PLATELET COUNT 265 K/uL (130-400); RED CELL DISTRIBUTION WIDTH CV 18.1 % (11.5-14.5); RED CELL DISTRIBUTION WIDTH SD 51.2 fL (36.4-46.3); WHITE BLOOD COUNT 3.65 K/uL (4.8-10.8)
[2018-04-25] MEDS: FLUTICASONE/SALMETEROL (ADVAIR) 500/50 INH 14 PUFF INH SCH (07:54)
[2018-04-25] MEDS: LACTATED RINGER'S 1000ML 1,000 ML IV SCH (07:59)
[2018-04-25 08:00] LABS: CALCIUM 8.6 mg/dl (8.5-10.1); CREATININE 0.72 mg/dl (0.60-1.20); POTASSIUM 3.7 mmol/L (3.5-5.1)
[2018-04-25] MEDS ORDERED: CYANOCOBALAMIN 1000 MCG/ML VIAL IM SCH (09:00)
[2018-04-25] MEDS ORDERED: PANTOprazole SOD 40 MG TAB PO SCH (09:00)
--- NOTE | 2018-04-25 12:42 | History & Physical Bridge Note ---
H&P Re-Evaluation Bridge Note: I have examined the patient, reviewed the History & Physical and in the interval since the performance of the History & Physical I have noted the following changes of clinical significance: No changes noted FARIHA; transfused for colonoscopy with possible bx/cautery consent obtained
[2018-04-25] MEDS ORDERED: LIDOCAINE HCL 2% 2 ML VIAL (20MG/ML) ONE (13:17)
[2018-04-25] MEDS ORDERED: PROPOFOL IV EMULSION 10 MG/ML 20 ML VIAL ONE ×2 (13:17→13:31)
--- NOTE | 2018-04-25 14:49 | Anesthesiology Progress Note ---
Anesthesia Post Op Note Date & Time Apr 25, 2018 at 14:49 Vital Signs Pain Intensity: 0.0 Vital Signs Past 12 Hours Date Time Temp Pulse Resp B/P (MAP) Pulse Ox O2 Delivery O2 Flow Rate FiO2 04/25/18 14:10 36 84 20 124/68 (86) 93 Room Air 04/25/18 13:55 84 20 118/62 (80) 93 Room Air 04/25/18 13:40 36 82 16 96/49 (65) 93 Room Air 04/25/18 12:48 36.7 85 20 113/68 (83) 96 Room Air 04/25/18 12:05 36.5 85 20 149/77 (101) 95 Room Air 04/25/18 11:32 98 Nasal Cannula 3.0 04/25/18 11:31 114 24 123/53 (76) 89 Room Air 04/25/18 08:00 Room Air 04/25/18 08:00 36.8 78 20 130/81 (97) 100 Room Air 04/25/18 04:36 36.7 76 17 114/68 (83) 91 Room Air Notes Mental Status: alert / awake / arousable, participated in evaluation Pt Amnestic to Procedure: Yes Nausea / Vomiting: adequately controlled Pain: adequately controlled Airway Patency, RR, SpO2: stable & adequate BP & HR: stable & adequate Hydration State: stable & adequate Anesthetic Complications: no major complications apparent
--- NOTE | 2018-04-25 15:23 | GI REPORT ---
Patient Name: Paula Arroyo Procedure Date: 04/25/2018 12:55 PM Date of : 1965 Admit Type: Inpatient Age: 53 Gender: Female Attending MD: Gurmeet Stokes MD Procedure: Colonoscopy Providers: Gurmeet Stokes MD Referring MD: John Guerrero Indications: Iron deficiency anemia Medicines: Propofol per Anesthesia Complications: No immediate complications. Estimated blood loss: None. Estimated Blood Loss: Estimated blood loss: none. Procedure: Pre-Anesthesia Assessment: - Prior to the procedure, a History and Physical was performed, and patient medications and allergies were reviewed. The patient's tolerance of previous anesthesia was also reviewed. The risks and benefits of the procedure and the sedation options and risks were discussed with the patient. All questions were answered, and informed consent was obtained. Prior Anticoagulants: The patient has taken no previous anticoagulant or antiplatelet agents. ASA Grade Assessment: II - A patient with mild systemic disease. After reviewing the risks and benefits, the patient was deemed in satisfactory condition to undergo the procedure. After I obtained informed consent, the scope was passed under direct vision. Throughout the procedure, the patient's blood pressure, pulse, and oxygen saturations were monitored continuously. The scope was introduced through the anus and advanced to the terminal ileum, with identification of the appendiceal orifice and IC valve. The colonoscopy was performed without difficulty. The patient tolerated the procedure well. The quality of the bowel preparation was good. Findings: The perianal and digital rectal examinations were normal. Pertinent negatives include normal sphincter tone, no palpable rectal lesions and no anal lesion or abnormality was detected. The terminal ileum appeared normal. The colon (entire examined portion) appeared normal. The retroflexed view of the distal rectum and anal verge was normal and showed no anal or rectal abnormalities. Impression: - The examined portion of the ileum was normal. - The entire examined colon is normal. - The distal rectum and anal verge are normal on retroflexion view. - No specimens collected. Recommendation: - Return patient to hospital [facility] for ongoing care. - To visualize the small bowel, perform video capsule endoscopy at appointment to be scheduled. - Celiac markers if not recently performed. MD Gurmeet Caban MD 04/25/2018 3:22:56 PM This report has been signed electronically. Note Initiated On: 04/25/2018 12:55 PM Number of Addenda: 0 I attest to the content of the Intraoperative Record and orders documented therein, exceptions below {[id number]}
[2018-04-25 15:46] LABS: HEMATOCRIT 26.1 % (37-47); HEMOGLOBIN 7.9 g/dL (12.0-16.0)
--- NOTE | 2018-04-25 17:34 | GASTROENTEROLOGY PROGRESS NOTE ---
DATE: 04/25/2018 The patient underwent colonoscopy today without source of anemia. Scope advanced to the terminal ileum. The patient's hemoglobin today was 7.9 and generally stable. She did receive a total of 2 units of packed cells on 04/23/2018. EGD yesterday by Dr. Jaffe shows ectopic gastric mucosa consistent with an inlet patch. Duodenal biopsies were not obtained. IMPRESSION AND PLAN: No obvious colonic source on today's study for bleeding. Will recommend outpatient video capsule endoscopy. If not recently performed, would check for celiac markers. Other sources may be gynecologic in origin if uterus is intact and still menstruating. We will make arrangements for a capsule endoscopy as an outpatient. Dr. Francis is covering this weekend.
[2018-04-25] MEDS ORDERED: CYAN10005 PO (17:52)
[2018-04-25] MEDS ORDERED: PRAM1TAB52 PO (17:55)
[2018-04-25] MEDS ORDERED: IRON SUCROSE INJ 100 MG in SODIUM CHLORIDE 0.9% 100ML 100 ML IV SCH (18:00)
--- NOTE | 2018-04-25 18:00 | Discharge Instructions ---
Discharge Instructions Date of Service Apr 25, 2018. Admission Reason for Admission: Symptomatic Anemia Discharge Discharge Diagnosis / Problem: Severe iron deficiency anemia with need for 2 units of blood Discharge Goals Goal(s): Learn about illness, Diagnostic testing, Therapeutic intervention Activity Recommendations Activity Limitations: as noted below For the next few days I would avoid strenuous activities (going to the gym, heavy outdoor tasks, etc). Gradually build up your activity level in the next week. . Instructions / Follow-Up Instructions / Follow-Up During your stay we found that you are severely iron deficiency and also B12 deficient. You received 2 units of blood and also IV iron. Please continue your iron three times a day as previous. Please also purchase [id number] vitamin B12 and take 1000mcg (1mg) daily. You will also receive shots in the doctor's office. We did not find a reason for your low iron. You will have an outpatient "capsule endoscopy" with Dr. Jaffe. You will also have testing for celiac disease (gluten intolerance). You can consider taking mirapex at bedtime for your night-time cramps/leg pains. This should help those symptoms. Do not drink alcohol with the mirapex. The mirapex may make you tired/sleepy. Follow-up with Dr. Upton's Office next week as well as with Dr. Jaffe. See separate section for appointment details. Return to [facility] if - * you are severely dizzy or lightheaded * you see black, tarry stools or bright red blood in your stools * any other concerns Current Hospital Diet Patient's current hospital diet: Regular Diet Discharge Diet Recommended Diet: Regular Diet Procedures Procedures Performed: Colonoscopy Upper endoscopy - Grant's seen, hiatal hernia seen Pending Studies Studies pending at discharge: no Medical Emergencies . Who to Call and When: Medical Emergencies: If at any time you feel your situation is an emergency, please call 911 immediately. . Non-Emergent Contact Non-Emergency issues call your: Primary Care Provider Call Non-Emergent contact if: temperature is above 100.5, you have any medication questions . . "Provider Documentation" section prepared by John Guerrero. .
--- NOTE | 2018-04-27 07:05 | Discharge Summary ---
Discharge Summary Date of Service Apr 27, 2018. Discharge Summary Admission Date: Apr 23, 2018 at 16:57 Discharge Date: Apr 25, 2018 Discharge Disposition: Home Principal Diagnosis: acute/chronic iron deficiency anemia Problems/Secondary Diagnoses: 1. severe symptomatic anemia s/p 2 units PRBCs 2. restless legs syndrome 2nd to severe iron deficiency 3. vitamin B12 deficiency 4. asthma 5. allergic rhinitis 6. Grant's esophagus 7. hiatal hernia 8. GERD Immunizations: Have You Had Influenza Vaccine: Yes History of Tetanus Vaccine?: Yes History of Pneumococcal: No History of Hepatitis B Vaccine: Yes Procedures: 1. PRBCs x 2 units 2. EGD - Grant's esophagus, hiatal hernia - no source of bleeding; Jonathan Jaffe MD 3. colonoscopy - normal; no source of bleeding; Jonathan Jaffe MD Consultations: gastroenterology - Jonathan Jaffe MD Medication Reconciliation New Medications: Cyanocobalamin (Vitamin B-12) 1,000 Mcg Tab 1000 MCG PO DAILY for 30 Days, #30 TAB 11 Refills Pramipexole Dihydrochloride (Mirapex) 0.25 Mg Tab 1 TAB PO HS for 30 Days, #30 TAB 2 Refills Continued Medications: Albuterol Hfa (Ventolin Hfa) 200 Puffs/03510 Mcg Aers 2-4 PUFFS INH Q6H, #1 INHALER Ferrous Sulfate (Ferrous Sulfate) 325 Mg Tab 325 MG PO TID, #90 TABS Fluticasone Prop/Salmeterol (Advair Diskus 500/50 60 Dose) 1 Ea Aerp 1 PUFF INH BID, INHALER Omeprazole (Prilosec) 20 Mg Capcr 20 MG PO DAILY, CAP Discharge Exam Physical Exam: General Appearance: no apparent distress ENT: pharynx normal Neck: no JVD Respiratory/Chest: lungs clear, no respiratory distress, no accessory muscle use Cardiovascular: regular rate, rhythm, no gallop, no murmur, normal peripheral pulses Abdomen / GI: normal bowel sounds, non tender, soft, no organomegaly Extremities: no pedal edema Neurologic/Psychiatric: alert, oriented x 3 Skin: + pallor Hospital Course HISTORY OF PRESENT ILLNESS: Paula Arroyo is a 53 yo female who presents with a 1 month history of generalized fatigue. Patient believed this was due to the weather. This past week, this has worsened to the point where patient reports SOB upon exertion, fatigue, and dizziness when changing position. Patient also states having a metallic taste in her mouth for past 2 days. Patient however, denies other symptoms of acid reflux such as burning or chest pain. Patient reports that she is compliant with her medicine, she takes iron supplement and PPI. She reports that she had a similar episode in the past 2 years when she was hospitalized for anemia. It was determined to be iron deficiency but a source was not found. During that time, it was blamed on possible NSAID use. Patient was followed with Dr. Jaffe from [facility] and has had upper and lower endoscopies without showing any signs of bleeding. Patient has not had an repeat episode since and was tolerating her PPI and iron tabs. Patient denies any change in her stool color as she always has dark stools and attributes this to her iron supplement. HOSPITAL COURSE: Hemoglobin just prior to admission was 5.8. After admission to the telemetry unit she was placed on PPI drip and given 2 units of PRBCs without complication. Ferritin level was 1.5, and surprisingly her vitamin B12 level was also low at about 220. Folate was normal. Dr. Jonathan Jaffe with [facility] was consulted who performed EGD and colonoscopy during her stay. Both endoscopies failed to show a source of active bleeding. EGD showed hiatal hernia and Grant's esophagus, both of which had been seen in the past. Following her PRBCs her hemoglobin stayed at about 8 for the remainder of her stay. In light of her very severe iron deficiency and the fact she had been taking oral iron for 2+ years she was given IV iron (venofer) and tolerated this without difficulty. Additional treatments could be considered in the outpatient setting. She was also given parenteral vitamin B12 in the event she has a small bowel absorption issue leading to her iron and B12 deficiencies. At discharge the following were recommended - 1. outpatient capsule endoscopy with Dr. Jaffe 2. consideration of celiac disease testing 3. ongoing B12 injections and/or oral replacement 4. ongoing iron supplementation - strongly consider IV replacement given her lack of response to oral replacement in the past 5. mirapex at bedtime for significant restless legs syndrome, likely due to the iron deficiency Total Time Spent: Greater than 30 minutes This includes examination of the patient, discharge planning, medication reconciliation, and communication with other providers. Discharge Instructions Please refer to the electronic Patient Visit Report (Discharge Instructions) for additional information. Follow-Up 1. Fatimah Raymundo PA-C on SaturdayApril 29 at 11:[address] Jonathan Jaffe - May 01 at 3:40 pm. Additional Copies To Jonathan Jaffe M.D.; Paolo Upton M.D.; Fatimah Raymundo PA-C
== END 2018-04-25 18:36 | disposition home or self-care (01) | DRG 812 ==
LOC: C.EDB 12:41 → ENRESERV 16:00 → C.2E 16:57 → EDBEDREQSVC 17:02 → ENRESERV 17:08
PROVIDERS: ADMIT Internal Medicine Sports Medicine; ATTEND Internal Medicine
PROC: 0DJ08ZZ Inspection of Upper Intestinal Tract, Via Natural or Artificial Opening Endoscopic (ICD-10-PCS; principal; 2018-04-24 15:12)
PROC: 0DJD8ZZ Inspection of Lower Intestinal Tract, Via Natural or Artificial Opening Endoscopic (ICD-10-PCS; 2018-04-25)
DX: D50.9 Iron deficiency anemia, unspecified (principal); K92.2 Gastrointestinal hemorrhage, unspecified; Q40.2 Other specified congenital malformations of stomach; J45.909 Unspecified asthma, uncomplicated; Z83.3 Family history of diabetes mellitus; Z82.49 Family history of ischemic heart disease and other diseases of the circulatory system; Z88.0 Allergy status to penicillin; Z88.8 Allergy status to other drugs, medicaments and biological substances; Z91.040 Latex allergy status; J30.1 Allergic rhinitis due to pollen; K22.70 Barrett's esophagus without dysplasia; G25.81 Restless legs syndrome; K44.9 Diaphragmatic hernia without obstruction or gangrene

== ENCOUNTER → 2018-04-23 | Outpatient (CLI) | payer OTHER ==
[~2018-04-23] MED LIST changes: +CYAN10005 PO; +PRAM1TAB52 PO; +PRLSR20 PO; +VNTHFA/IN INH
[2018-04-23 09:45] LABS: HEMATOCRIT 20.5 % (37-47); HEMOGLOBIN 5.8 g/dL (12.0-16.0); MEAN CELL VOLUME 73.5 fL (80-100); MEAN CORPUSCULAR HEMOGLOBIN 20.8 pg (25-34); MEAN CORPUSCULAR HGB CONC 28.3 g/dl (32-36); MEAN PLATELET VOLUME 10.2 fL (7.4-10.4); PLATELET COUNT 303 K/uL (130-400); RED CELL DISTRIBUTION WIDTH CV 16.9 % (11.5-14.5); RED CELL DISTRIBUTION WIDTH SD 45.8 fL (36.4-46.3); TRANSFERRIN 354 mg/dl (200-360); WHITE BLOOD COUNT 3.28 K/uL (4.8-10.8)
[2018-04-23 12:52] LABS: BASO % 0.3 %; BASO ABS # 0.01 K/uL (0-0.2); EOS % 3.4 %; EOS ABS # 0.11 K/uL (0-0.5); LYMPH % 27.7 %; LYMPH ABS # 0.91 K/uL (1.2-3.4); MONO % 9.8 %; MONO ABS # 0.32 K/uL (0.11-0.59); NEUT % 58.8 %; NEUT ABS # 1.93 K/uL (1.4-6.5)
== END | disposition home or self-care (01) ==
LOC: C.LAB1850 07:33
PROVIDERS: ATTEND Internal Medicine Pulmonary Disease
DX: R53.83 Other fatigue (principal); D50.0 Iron deficiency anemia secondary to blood loss (chronic)